=== PATIENT | female | born 2000 | race Caucasian/White ===

== ENCOUNTER 2021-03-23 09:37 | Outpatient (REF) | payer OTHER, SELFPAY ==
[2021-03-23 10:02] LABS: MANUAL DIFF FLAG NO
[2021-03-23 10:33] LABS: Basophils Percent Auto 0.5 % (0-2); Eosinophils Absolute Auto 0.2 X10*3/uL (0.0-0.4); Eosinophils Percent Auto 2.4 % (0-4); Hematocrit 41.3 % (37.0-47.0); Hemoglobin 14.2 g/dl (12.0-16.0); Imm Gran Abs Auto 0.01 X10*3/uL (0.00-0.03); Imm Gran Pct Auto 0.2 % (0.0-0.4); Lymphocytes Absolute Auto 1.8 X10*3/uL (1.2-4.9); Lymphocytes Percent Auto 28.5 % (20-40); Mean Corpuscular HGB Conc 34.4 g/dl (31.0-35.0); Mean Corpuscular Hemoglobin 29.7 pg (27.0-33.0); Mean Corpuscular Volume 86.4 fL (80.0-98.0); Mean Platelet Volume 10.7 fL (9.4-12.3); Monocytes Absolute Auto 0.5 X10*3/uL (0.1-1.2); Monocytes Percent Auto 7.3 % (2-11); Neutrophils Absolute Auto 3.9 x10*3/uL (2.0-8.3); Neutrophils Percent Auto 61.1 % (45-73); Platelet Count 226 X10*3/uL (160-400); Red Blood Count 4.78 X10*6/uL (4.20-5.50); White Blood Count 6.3 X10*3/uL (4.8-10.8)
[2021-03-23 11:01] LABS: Alanine Aminotransferase 21 U/L (0-31); Albumin Level 4.4 g/dL (3.5-5.0); Alkaline Phosphatase 78 U/L (39-117); Anion Gap 11 (12-20); Aspartate Amino Transferase 17 U/L (5-31); Blood Urea Nitrogen 12 mg/dL (9-16); Calcium 9.4 mg/dL (8.4-10.2); Carbon Dioxide 27 mmol/L (22-29); Chloride 107 mmol/L (96-108); Cholesterol 180 mg/dL; Estimated Glomerular Filt Rate > 60; Glucose Fasting 104 mg/dL (60-99); HDL Cholesterol 42 mg/dL; LDL Cholesterol Calculated 117 mg/dl; Potassium 4.1 mmol/L (3.3-5.1); Sodium 141 mmol/L (135-145); Triglycerides 106 mg/dL
== END 2021-03-23 09:38 | disposition home or self-care (01) ==
LOC: HO.LAB 09:37
PROVIDERS: PCP Internal Medicine; Visit Provider Internal Medicine
DX: Z00.00 Encounter for general adult medical examination without abnormal findings (principal); E66.01 Morbid (severe) obesity due to excess calories
CPT/HCPCS: 36415; 80053; 80061; 84443; 85025

== ENCOUNTER 2022-06-28 08:49 | Outpatient (REF) | payer OTHER, SELFPAY ==
[2022-06-28 14:32] LABS: CT PCR NOT DETECTED (Not Detect.); NG PCR NOT DETECTED (Not Detect.)
[2022-06-29 09:56] LABS: BV Int Neg Control Negative (Negative); BV Int Pos Control Positive (Positive)
== END 2022-06-28 08:50 | disposition home or self-care (01) ==
LOC: HO.LNP 08:49
PROVIDERS: PCP Internal Medicine; Visit Provider Advanced Practice Midwife
DX: Z01.419 Encounter for gynecological examination (general) (routine) without abnormal findings (principal); Z20.2 Contact with and (suspected) exposure to infections with a predominantly sexual mode of transmission; R03.0 Elevated blood-pressure reading, without diagnosis of hypertension; E66.01 Morbid (severe) obesity due to excess calories
CPT/HCPCS: 0353U; 87480; 87510; 87660; 88142

== ENCOUNTER 2023-11-22 08:28 | Outpatient (AMB) | payer OTHER, SELFPAY ==
[2023-11-22 08:30] VITALS: BP 130/78; BMI 44.4
--- NOTE | 2023-11-22 08:30 | A.OFFPC_ITS ---
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 Accompanied by: Self / Same As Patient Allergies No Known Allergies Allergy (Verified 11/22/23 08:46) Medication List - Last Reconciled 11/22/23 by Nneka Branch MD etonogestrel (Nexplanon) subdermal Tobacco use date assessed: 11/22/23 Dental Screening Dental Screen Date: 11/22/23 Did you have a dental visit in the last 12 months?: No Did you have a dental problem in the last 6 months where you did not have access to dental care?: No Was dental information given to patient?: Patient has dentist HPI HPI Comments History of Present Illness Details This is a 23-year-old female that comes for her physical exam. Pap smear done 2022 and was negative. She is morbidly obese with a BMI of 44.4 and declines weight loss surgery or weight loss medications. Was advised to do diet and exercise to reach BMI goal less than 30. No chest pain or shortness on breath. No acute complaints. [facility] Medical History (Updated 11/22/23 @ 08:57 by Nneka Branch MD) Physical exam Morbid obesity Surgical History No pertinent past surgical history Family History Father Hypertension Mother Pure hypercholesterolemia Social History (Updated 11/22/23 @ 08:49 by Nneka Branch MD) Housing: House Alcohol intake: current Alcohol intake frequency: a few times a month Alcohol type: beer, wine and hard liquor Patient Tobacco Use Status: Never used Tobacco e-Cigarette/Vaping Use: Never Used Second Hand Smoke Exposure: No service: No Current occupational status: employed Current occupational exposures/hazards: No Cognitive needs: No Hearing needs: No Vision needs: No Female Reproductive History Menstrual Age of Menarche: 11 Questionnaire PHQ-9 Over the last 2 weeks, how often have you been bothered by any of the following problems? 1. Little interest or pleasure in doing things: not at all 2. Feeling down, depressed, or hopeless: not at all 3. Trouble falling or staying asleep, or sleeping too much: several days 4. Feeling tired or having little energy: not at all 5. Poor appetite or overeating: not at all 6. Feeling bad about yourself - or that you are a failure or have let yourself or your family down: not at all 7. Trouble concentrating on things, such as reading the newspaper or watching television: not at all 8. Moving or speaking so slowly that other people could have noticed. Or the opposite - being so fidgety or restless that you have been moving around a lot more than usual: not at all 9. Thoughts that you would be better off or of hurting yourself in some way: not at all Total score: 1 Depression Screening Interpretation: Negative Depression Screening Done: Yes 58122 - PHQ-9 Billing: Yes Source: Developed by Drs. Shon Sánchez, Stephanie Louie, Janak Morley and colleagues, with an educational martinez from [employer] Thrive Questionnaire Date Thrive assessed: 11/22/23 I am a: Patient What is your living situation today?: I have a steady place to live Within the past 12 months, did the food you bought not last and you didn't have the money to get more?: Never true Within the past 12 months, did you worry whether your food would run out before you got money to buy more?: Never true Do you have trouble paying for medicines?: No Do you have trouble getting transportation to medical appointments?: No Do you have trouble paying your heating and electricity bill?: No Do you have trouble taking care of your child, family member or friend?: No Do you have trouble with day-to-day activities such as bathing, preparing meals, shopping, managing finances, etc.?: No Are you currently unemployed and looking for a job?: No Are you interested in more education?: No Please select the resources that you would like help with: None Currently or been in a relationship where the following occur: No concerns reported THRIVE Score: 0 AUDIT C Alcohol Use Questionnaire (AUDIT-C) 1. How often do you have a drink containing alcohol?: 2-4 times a month 2. How many drinks containing alcohol do you have on a typical day when you are drinking?: 1 or 2 3. How often do you have six or more drinks on one occasion?: Never Total Score: 2 JEANNE-7 AMB Questionnaire JEANNE-7 Date JEANNE - 7 assessed: 11/22/23 Feeling nervous, anxious, or on edge: 0 = Not at all Not being able to stop or control worryin = Not at all Worrying too much about different things: 0 = Not at all Trouble relaxin = Not at all Being so restless that it is hard to sit still: 1 = Several days Becoming easily annoyed or irritable: 0 = Not at all Feeling afraid as if something awful might happen: 0 = Not at all Total JEANNE-7 score (0-4 normal; 5-9 mild; 10-14 moderate; 15-21 severe): 1 Source: Developed by Drs. Shon Sánchez, Stephanie Louie, Janak Morley and colleagues, with an educational martinez from [employer] JEANNE-7 Assessment Billing JEANNE-7 Assessment Tool: JEANNE-7 Assessment 72273 Review of Systems Const All systems reviewed & are unremarkable except as noted in HPI and below Card Denies chest pain at rest, Denies chest pain with activity, Denies edema, Denies irregular heart rhythm, Denies claudication, Denies dyspnea, Denies dyspnea on exertion, Denies orthopnea, Denies paroxysmal nocturnal dyspnea and Denies slow heart rate Resp Denies cough, Denies dyspnea and Denies dyspnea on exertion GI Denies abdominal pain, Denies change in bowel habits, Denies excessive flatus, Denies nausea and Denies vomiting Denies urinary incontinence, Denies urinary hesitancy and Denies urinary urgency Musc Denies atrophy, Denies deformity and Denies limited range of motion Skin/Breast Denies bleeding lesions, Denies changing lesions and Denies rash Physical exam (Primary Care) Vital Signs: Last Vital Signs BP 130/78 11/22/23 08:30 BMI result Body Mass Index 44.4 BMI Assessment/Plan discussion: High BMI High, discussed plan: lifestyle, weight reduction, dietary and physical activity Tobacco/Smoking Status: Tobacco use Status Tobacco use date assessed 11/22/23 11/22/23 08:35 Patient Tobacco Use Status Never used Tobacco 11/22/23 08:35 e-Cigarette/Vaping Use Never Used 11/22/23 08:35 PHQ-9: PHQ-9 Score PHQ-9: Total score 1 11/22/23 08:35 Depression Screening Interpretation: Negative Thrive Assessment: Date of Thrive Assessment Date Thrive assessed 11/22/23 11/22/23 08:35 Currently or been in a relationship where the following occur: No concerns reported [facility] Head: Yes normal to inspection, Yes normocephalic and Yes atraumatic Ears: external ears normal Eyes General: appearance normal, both eyes and all related structures Eyelids: Yes eyelids normal Conjunctivae: conjunctivae normal Neck Neck: Yes normal visual inspection and Yes supple Resp Effort & Inspection: normal respiratory effort Auscultation: clear to auscultation bilaterally Cardio Jugular venous distension: no JVD Rate: regular rate Rhythm: regular rhythm Heart sounds: S1 normal heart sound present and S2 normal heart sound present GI Inspection: Yes normal to inspection Palpation (GI): Soft to palpation and nontender Auscultation: normal bowel sounds Skin General skin exam: no rashes or lesions noted Neuro General: no focal motor deficits Extrem General: Yes full ROM Psych Appearance: grossly normal Assessment and Plan Assessment & Plan (1) Physical exam: Code(s): Z00.00 - Encounter for general adult medical examination without abnormal findings Plan: Repeat in a year. (2) Obesity, morbid, BMI 40.0-49.9: Code(s): E66.01 - Morbid (severe) obesity due to excess calories Plan: Advised diet and exercise. BMI goal is less than 30. Orders: Orders Lipid Panel Today Z00.00 - Encounter for general adult medical examination without abnormal findings Comprehensive Tell. Panel Fast Today Z00.00 - Encounter for general adult medical examination without abnormal findings Coding Level of Care Code Est Pt Prev Care 18-39y(31782) Diagnoses Physical exam Z00.00 Obesity, morbid, BMI 40.0-49.9 E66.01 Additional Codes JEANNE-7 Assessment Billing - JEANNE-7 Assessment Tool: JEANNE-7 Assessment [id number] ([id number]) Time Spent (min) 30
== END 2023-11-22 08:55 | disposition home or self-care (01) ==
PROVIDERS: PCP Internal Medicine; Visit Provider Internal Medicine
DX: Z00.00 Encounter for general adult medical examination without abnormal findings (principal); E66.01 Morbid (severe) obesity due to excess calories; Z68.41 Body mass index [BMI] 40.0-44.9, adult

== ENCOUNTER → 2023-11-22 08:28 | Outpatient (BNVA) | payer OTHER, SELFPAY | PROVIDERS: PCP Internal Medicine; Visit Provider Internal Medicine | DX: Z00.00 Encounter for general adult medical examination without abnormal findings (principal); E66.01 Morbid (severe) obesity due to excess calories; Z68.41 Body mass index [BMI] 40.0-44.9, adult | CPT/HCPCS: 96127 ==

== ENCOUNTER 2025-02-10 13:18 | Outpatient (AMB) | payer BC, SELFPAY ==
--- NOTE | 2025-02-10 13:21 | MHC.PC.OV ---
Vital Signs 02/10/25 13:22 Height 5 ft 5 in Weight 273 lb BMI 45.4 BP 128/62 Blood Pressure Location Lt brachial Position Sitting Pulse 109 H Pulse Source Pulse Oximeter Temp 97.1 F Temp Source Temporal Artery Scan Pulse Oximetry (%) 98 Oxygen Delivery Method Room Air Intake Visit Reasons: Ear discomfort Intake Note: Patient is here to follow up on Ear discomfort. 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: Not Required per policy Accompanied by: Self / Same As Patient Allergies No Known Allergies Allergy (Verified 02/10/25 13:22) Medication List - Last Reconciled 02/10/25 by Selin Appiah MD carbamide peroxide 6.5% (Debrox) 5 drps otic (ears) BID 4 days etonogestrel (Nexplanon) subdermal fluticasone propionate 50 mcg/actuation 1 spray intranasal DAILY 7 days Tobacco use date assessed: 02/10/25 Dental Screening Dental Screen Date: 02/10/25 Did you have a dental visit in the last 12 months?: No Did you have a dental problem in the last 6 months where you did not have access to dental care?: No Was dental information given to patient?: No HPI HPI Comments History of Present Illness Details The patient is a 24-year-old female who presents with a chief complaint of a muffled and stuffy sensation in her right ear which started about three to four days ago. She reports the symptom began at night after a shower. She reports decreased hearing in the right ear, describing it as quieter than the left, but denies pain or itchiness. The patient denies associated fever, chills, runny nose, nasal congestion, sore throat, or post-nasal drip. She has a history of seasonal allergies. 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 Her only medication is Nexplanon. She denies any recent long flights or exposure to high altitudes. [facility] Medical History (Updated 11/22/23 @ 08:57 by Nneka Branch MD) Physical exam Morbid obesity Surgical History No pertinent past surgical history Family History Father Hypertension Mother Pure hypercholesterolemia Social History Housing: House Alcohol intake: current Alcohol intake frequency: a few times a month Alcohol type: beer, wine and hard liquor Patient Tobacco Use Status: Never used Tobacco e-Cigarette/Vaping Use: Never Used Second Hand Smoke Exposure: No service: No Current occupational status: employed Current occupational exposures/hazards: No Cognitive needs: No Hearing needs: No Vision needs: No Female Reproductive History Menstrual Age of Menarche: 11 Questionnaire PHQ-9 Over the last 2 weeks, how often have you been bothered by any of the following problems? 1. Little interest or pleasure in doing things: not at all 2. Feeling down, depressed, or hopeless: not at all 3. Trouble falling or staying asleep, or sleeping too much: not at all 4. Feeling tired or having little energy: not at all 5. Poor appetite or overeating: not at all 6. Feeling bad about yourself - or that you are a failure or have let yourself or your family down: not at all 7. Trouble concentrating on things, such as reading the newspaper or watching television: not at all 8. Moving or speaking so slowly that other people could have noticed. Or the opposite - being so fidgety or restless that you have been moving around a lot more than usual: not at all 9. Thoughts that you would be better off or of hurting yourself in some way: not at all Total score: 0 Depression Screening Interpretation: Negative Depression Screening Done: Yes Source: Developed by Drs. Shon Sánchez, Stephanie Louie, Janak Morley and colleagues, with an educational martinez from [employer]. Thrive Questionnaire Date Thrive assessed: 02/10/25 I am a: Patient What is your living situation today?: I have a steady place to live Within the past 12 months, did the food you bought not last and you didn't have the money to get more?: Never true Within the past 12 months, did you worry whether your food would run out before you got money to buy more?: Never true Do you have trouble paying for medicines?: No Do you have trouble getting transportation to medical appointments?: No Do you have trouble paying your heating and electricity bill?: No Do you have trouble taking care of your child, family member or friend?: No Do you have trouble with day-to-day activities such as bathing, preparing meals, shopping, managing finances, etc.?: No Are you currently unemployed and looking for a job?: No Are you interested in more education?: No Please select the resources that you would like help with: None Currently or been in a relationship where the following occur: No concerns reported THRIVE Score: 0 AUDIT C Alcohol Use Questionnaire (AUDIT-C) 1. How often do you have a drink containing alcohol?: 2-4 times a month 2. How many drinks containing alcohol do you have on a typical day when you are drinking?: 1 or 2 3. How often do you have six or more drinks on one occasion?: Never Total Score: 2 JEANNE-7 AMB Questionnaire JEANNE-7 Date JEANNE - 7 assessed: 02/10/25 Feeling nervous, anxious, or on edge: 0 = Not at all Not being able to stop or control worryin = Not at all Worrying too much about different things: 0 = Not at all Trouble relaxin = Not at all Being so restless that it is hard to sit still: 0 = Not at all Becoming easily annoyed or irritable: 0 = Not at all Feeling afraid as if something awful might happen: 0 = Not at all Total JEANNE-7 score (0-4 normal; 5-9 mild; 10-14 moderate; 15-21 severe): 0 Source: Developed by Drs. Shon Sánchez, Stephanie Louie, Janak Morley and colleagues, with an educational martinez from [employer]. Physical exam (Primary Care) Vital Signs: Last Vital Signs Temp 97.1 F 02/10/25 13:22 Pulse 109 H 02/10/25 13:22 BP 128/62 02/10/25 13:22 Pulse Ox 98 02/10/25 13:22 Oxygen Delivery Method Room Air 02/10/25 13:22 General: Well-appearing, alert, oriented ?3, in no acute distress. HEENT: Normocephalic, atraumatic, PERRLA, EOMI, no scleral icterus. External ears normal, cerumen impaction bilateral ears, tympanic membranes could not be appreciated due to wax impaction. Nares patent, mild nasal mucosa erythema, no discharge. No oral lesions, or pharyngeal erythema. Neck Supple Cardiovascular: RRR, S1-S2 appreciated, no murmurs, rubs or gallops. Respiratory: Lungs clear to auscultation bilaterally, no wheezes, rales or rhonchi. BMI result Body Mass Index 45.4 Tobacco/Smoking Status: Tobacco use Status Tobacco use date assessed 02/10/25 02/10/25 13:27 Patient Tobacco Use Status Never used Tobacco 02/10/25 13:27 e-Cigarette/Vaping Use Never Used 02/10/25 13:27 PHQ-9: PHQ-9 Score PHQ-9: Total score 0 02/10/25 13:27 Depression Screening Interpretation: Negative Thrive Assessment: Date of Thrive Assessment Date Thrive assessed 02/10/25 02/10/25 13:27 Currently or been in a relationship where the following occur: No concerns reported Coding Level of Care Code Est Pt Level 4 (78498) Diagnoses Congestion of right ear H93.8X1 Decreased hearing of right ear H91.91 Assessment & Plan Assessment & Plan (1) Congestion of right ear: Code(s): H93.8X1 - Other specified disorders of right ear Plan: Patient presenting with a 3-4 days' history of right-sided aural fullness and subjective hearing loss on the right side. Symptoms could be secondary to allergic rhinitis with eustachian tube dysfunction, cerumen impaction and potential nose induced hearing changes given her occupation. Physical exam revealed cerumen impaction in bilateral ears. Plan - start Flonase nasal spray once daily for 7 days to address a potential allergy component, given history of seasonal allergies -use Claritin daily for a month -use Debrox ear drops twice daily for 4 days soft in the cerumen and return for ear lavage (2) Decreased hearing of right ear: Code(s): H91.91 - Unspecified hearing loss, right ear Plan: Her subjective decreased hearing of the right ear could be secondary to allergic rhinitis or cerumen impaction. However, given patient's work in construction with exposure to loud noises, will refer to ENT for for further evaluation Orders: Referrals Ear/Nose/Throat Referral H91.91 - Unspecified hearing loss, right ear Medications: New fluticasone propionate 50 mcg/actuation administer into each nostril 1 spray intranasal DAILY 16 grams 0RF 7 days carbamide peroxide 6.5% (Debrox) 5 drps otic (ears) BID 15 mL 0RF 4 days
[2025-02-10 13:22] VITALS: BP 128/62; PULSE 109; TEMP 36.2; O2SAT 98; BMI 45.4
--- OUTSIDE RECORDS SUMMARY | 2025-02-10 21:55 | XMS_ITS | Clinical Summary ---
Author Organization [facility] Address [address] [place] [phone] Phone Care Team Providers Care Pediatric Physiatrist Name Role Phone Nneka Lovelace MD Primary Care Provid er Allergies No known active allergies Medications No known medications Active Problems No known active problems Immunizations Immunization Administration Dates Next Due COVID-19 (Pre-12/26) Pfizer Vaccine, mRNA, PF ,06/14/2020 Social History Tobacco Use Types Packs/Day Years Used Date Smoking Tobacco: Never Smokeless Tobacco: Never Alcohol Use Standard Drinks/Week Comments Yes 0 (1 standard drink = 0.6 oz pur e alcohol) occ Education Answer Date Recorded Are you interested in more education? Not on ellie e 07/01/2022 Are you concerned about learning? Not on file 07/01/2022 No 07/01/2022 No 07/01/2022 Digital Access Answer Date Recorded No 07/30/2022 No 07/30/2022 No 07/30/2022 Reliable internet access at home? Not on file 07/30/2022 Device with a working camera? Not on file Comments Unknown Sex and Gender Information Value Date Recorded Sex Assigned at Female 07/04/2020 12:20 AM EDT Legal Sex Female 10:18 AM EDT Gender Identity Female 07/04/2020 12:20 AM EDT Sexual Orientation Straight 07/04/2020 12 :20 AM EDT Last Filed Vital Signs Vital Sign Reading Time Taken Comments Blood Pressure - - Pulse - - Temperature - - Respiratory Rate - - Oxygen Saturation - - Inhaled Oxygen Concentration - - Weight 113.4 kg (250 lb) 11/15/2019 10:40 AM EDT Height 165.1 cm (5' 5 ) 11/15/2019 10:40 AM EDT Body Mass Index 41.6 11/15/2019 10:40 AM EDT Plan of Treatment Health Maintenance Due Date Last Done Comments Adult Td,Tdap Booster 1998 DEPRESSION SCREENING 2010 HPV VACCINES (2 - 2-dose series) 11/14/2010 2010 HEPATITIS C SCREENING 2016 HIV ONE-TIME SCREENING (18-65 YEARS) 2016 PAP SMEAR 05/15/2019 SMOKING STATUS SCREENING (Once After 26 Yrs) 2024 INFLUENZA VACCINE (#1) 2024 , 12/17/2018, 01/10/2018, Additional history exists COVID-19 VACCINE (2024- season) 2024 07/05/2020, 06/14/2020 MENINGOCOCCAL VACCINES (ACWY) Completed 07/25/2015 HEPATITIS A VACCINES Aged Out No long er eligible based on patient's age to complete this topic HIB VACCINES Aged Out No longer eligi ble based on patient's age to complete this topic MENINGOCOCCAL VACCINES (B) Aged Out N o longer eligible based on patient's age to complete this topic PNEUMOCOCCAL VACCINES (0-49 years) Aged Out No longer eligible based on patient's age to complete this topic Medical Devices Not on file Insurance [place] [address] [place] [place] [id number] [place] [id number] [place] [address] [address] [place] [id number] Care Teams Pediatric Physiatrist Relationship Specialty Start Date End Date Nneka Lovelace MD [address] [place] [phone] PCP - General Internal Medicine 11/15/19 Additional Source Comments The information contained in this document represents components of the legal health record. It is not the complete legal health record.[facility]
== END 2025-02-10 13:55 | disposition home or self-care (01) ==
PROVIDERS: PCP Internal Medicine; Visit Provider Student in an Organized Health Care Education/Training Program
DX: H93.8X1 Other specified disorders of right ear (principal); H91.91 Unspecified hearing loss, right ear

== ENCOUNTER 2025-02-17 16:22 | Outpatient (AMB) | payer BC, SELFPAY ==
[2025-02-17 16:30] VITALS: BP 134/82; PULSE 92; RESP 18; O2SAT 98; BMI 45.7
--- NOTE | 2025-02-17 16:30 | A.OFFPC_ITS ---
Vital Signs 02/17/25 16:30 Height 5 ft 5 in Weight 274 lb 6 oz BMI 45.7 BP 134/82 Blood Pressure Location Lt brachial Position Sitting Respiration 18 Pulse 92 Pulse Source Pulse Oximeter Temp Source Temporal Artery Scan Pulse Oximetry (%) 98 Oxygen Delivery Method Room Air Intake Visit Reasons: Ear Clean Residence Director Required: No Accompanied by: Self / Same As Patient Allergies No Known Allergies Allergy (Verified 02/17/25 16:31) Tobacco use date assessed: 02/17/25 Dental Screening Dental Screen Date: 02/17/25 Did you have a dental visit in the last 12 months?: No Did you have a dental problem in the last 6 months where you did not have access to dental care?: No Was dental information given to patient?: No HPI HPI Comments History of Present Illness Details Patient is a 24-year-old female who is seen in clinic on 02/10/2025 for congestion and pressure of the right ear with muffled sensation and decreased hearing. Patient was found to have bilateral ear impacted cerumen, advised to use Debrox twice a day for 4 days, started on Flonase once daily for 7 days for a possible allergic component. And was referred to ENT for further evaluation given decreased hearing in the setting of occupational exposure to loud noises. Patient returns today for ear clean. She used Debrox as instructed and feels better already with less pressure in right ear.. She has completed 7 days' course of Flonase. States that ENT office contacted her to schedule an appointment. [facility] Medical History Physical exam Morbid obesity Surgical History No pertinent past surgical history Family History Father Hypertension Mother Pure hypercholesterolemia Social History Housing: House Alcohol intake: current Alcohol intake frequency: a few times a month Alcohol type: beer, wine and hard liquor Patient Tobacco Use Status: Never used Tobacco e-Cigarette/Vaping Use: Never Used Second Hand Smoke Exposure: No service: No Current occupational status: employed Current occupational exposures/hazards: No Cognitive needs: No Hearing needs: No Vision needs: No Female Reproductive History Menstrual Age of Menarche: 11 Questionnaire Thrive Questionnaire Date Thrive assessed: 02/17/25 I am a: Patient What is your living situation today?: I have a steady place to live Within the past 12 months, did the food you bought not last and you didn't have the money to get more?: Never true Within the past 12 months, did you worry whether your food would run out before you got money to buy more?: Never true Do you have trouble paying for medicines?: No Do you have trouble getting transportation to medical appointments?: No Do you have trouble paying your heating and electricity bill?: No Do you have trouble taking care of your child, family member or friend?: No Do you have trouble with day-to-day activities such as bathing, preparing meals, shopping, managing finances, etc.?: No Are you currently unemployed and looking for a job?: No Are you interested in more education?: No Please select the resources that you would like help with: None Currently or been in a relationship where the following occur: No concerns reported THRIVE Score: 0 JEANNE-7 AMB Questionnaire JEANNE-7 Date JEANNE - 7 assessed: 02/10/25 Source: Developed by Drs. Shon Sánchez, Stephanie Louie, Janak Morley and colleagues, with an educational martinez from [employer]. Physical exam (Primary Care) Vital Signs: Last Vital Signs Pulse 92 02/17/25 16:30 Resp 18 02/17/25 16:30 BP 134/82 02/17/25 16:30 Pulse Ox 98 02/17/25 16:30 Oxygen Delivery Method Room Air 02/17/25 16:30 Cerumen in bilateral ears, much improved from prior visit. BMI result Body Mass Index 45.7 Tobacco/Smoking Status: Tobacco use Status Tobacco use date assessed 02/17/25 02/17/25 16:32 Patient Tobacco Use Status Never used Tobacco 02/17/25 16:32 e-Cigarette/Vaping Use Never Used 02/17/25 16:32 Thrive Assessment: Date of Thrive Assessment Date Thrive assessed 02/17/25 02/17/25 16:32 Currently or been in a relationship where the following occur: No concerns reported Coding Level of Care Code Est Pt Level 3 (60880) Procedure Only Diagnoses Bilateral impacted cerumen H61.23 Laterality: bilateral Assessment & Plan Assessment & Plan (1) Cerumen impaction: Code(s): H61.20 - Impacted cerumen, unspecified ear Qualifiers: Laterality: bilateral Qualified Code(s): H61.23 - Impacted cerumen, bilateral Plan: Patient with bilateral ear cerumen impaction, with congestion and pressure of the right ear more than left ear s/p Debrox ear drops for 4 days, presenting today for ear cleaning. Patient tolerated procedure well. Patient reports feeling much better and that pressure sensation almost resolved. She will schedule an appointment with ENT as she would like to get evaluated given reports of decreased hearing in the setting of exposure to loud noises
--- OUTSIDE RECORDS SUMMARY | 2025-02-17 22:34 | XMS_ITS | Clinical Summary ---
Author Organization [facility] Address [address] [place] [id number] Phone Care Team Providers Care Validation Leader Name Role Phone Nneka Lovelace MD Primary [...] on file Insurance [place] [address] [place] [id number] [place] [place] [id number] [place], [place] [id number] [place], [place] [id number] Care Teams Validation Leader Relationship Specialty Start Date End Date Nneka Lovelace MD [address] [place] [id number] PCP - General Internal Medicine 11/15/19 Additional Source Comments The information contained in this document represents components of the legal health record. It is not the complete legal health record.[facility]
== END 2025-02-17 17:25 | disposition home or self-care (01) ==
LOC: HO.HMCH 16:23
PROVIDERS: PCP Internal Medicine; Visit Provider Student in an Organized Health Care Education/Training Program
DX: H61.23 Impacted cerumen, bilateral (principal)

== ENCOUNTER → 2025-02-17 16:22 | Outpatient (BNVA) | payer BC, SELFPAY | PROVIDERS: PCP Internal Medicine; Visit Provider Student in an Organized Health Care Education/Training Program | DX: H61.23 Impacted cerumen, bilateral (principal) | CPT/HCPCS: 69209 ==